=== PATIENT | female | born 1970 | race Caucasian/White ===

== ENCOUNTER 2018-04-26 22:12 | Emergency (ER) | payer MEDICAID ==
[~2018-04-26] VITALS: Ht 172.7 cm; Wt 76.5 kg
[2018-04-26 22:15] VITALS: BP 120/57
== END 2018-04-27 00:10 | disposition home or self-care (01) ==
LOC: ED 04-27 00:04
DX: S52.691A Other fracture of lower end of right ulna, initial encounter for closed fracture (principal); Z87.891 Personal history of nicotine dependence; W00.0XXA Fall on same level due to ice and snow, initial encounter; Y93.89 Activity, other specified; Y92.89 Other specified places as the place of occurrence of the external cause; Y99.8 Other external cause status
CPT/HCPCS: 72020; 72050; 99283

== ENCOUNTER 2018-11-30 09:13 | Emergency (ER) | payer MEDICAID ==
[~2018-11-30] VITALS: Ht 172.7 cm; Wt 75.4 kg
[2018-11-30 09:31] VITALS: BP 120/93
== END 2018-11-30 10:16 | disposition home or self-care (01) ==
LOC: ED 10:05
DX: K02.9 Dental caries, unspecified (principal); F17.200 Nicotine dependence, unspecified, uncomplicated
CPT/HCPCS: 99283